=== PATIENT | female | born 1990 | race African-American/Black ===

== ENCOUNTER 2019-12-20 10:39 | Emergency (ER) | payer SELFPAY ==
[2019-12-20 10:45] VITALS: BP 118/66; PULSE 75; RESP 16; TEMP 37; O2SAT 100
--- NOTE | 2019-12-20 11:04 | ED.URI ---
HPI - URI/Sore Throat General Chief Complaint: Upper Respiratory Infection Stated Complaint: ST/HEADACHE Time Seen by Provider: 12/20/19 10:49 Source: patient and RN notes reviewed Mode of arrival: ambulatory Limitations: no limitations History of Present Illness HPI Narrative: Pt is a 29 y/o female who presents to the ED with c/o cold symptoms starting 2 days ago. She notes that she has had rhinorrhea, cough, headache, sneezing, and chills. Pt states that she also had body aches in her lower extremities 2 days ago, but notes that her pain is currently resolved. She denies any fever, nausea, or vomiting. Pt states that she took Nyquil last night for her symptoms, and notes that the medication provided her mild relief. She states that she hasn't been around any sick contacts or travelled recently. MD elicited complaint: other (Cold Symptoms) Onset (ago): day(s) (2) Relieving factors: OTC cold medicine Associated symptoms: chills, myalgias (lower extremity pain (resolved)), headache, rhinorrhea, cough and other (sneezing) Treatments prior to arrival: cold medicine Related Data Allergies Allergy/AdvReac Type Severity Reaction Status Date / Time No Known Allergies Allergy Unverified 05/28/19 17:43 Review of Systems Review of Systems: All systems reviewed & are unremarkable except as noted in HPI and below Constitutional: Constitutional: Reports chills and Denies fever(s) ENT: Reports headache(s), Reports nasal discharge and Reports other (sneezing) Respiratory: Respiratory: Reports cough Gastrointestinal: Gastrointestinal: Denies nausea and Denies vomiting Musculoskeletal: Musculoskeletal: Reports myalgias (lower extremity pain (resolved)) PMFSH Past Medical History Medical History Pyelonephritis URI (upper respiratory infection) Surgical History Surgical History No significant past surgical history Social History Social History Smoking status: Never smoker Exam Const: General: healthy appearing and no acute distress Nutritional Appearance: well nourished HENMT: General nose exam: Other nasal findings present (nasal mucosa edema) Face and sinus: sinuses nontender Resp: Effort & Inspection: normal respiratory effort Auscultation: clear to auscultation bilaterally Cardio: Rate: regular rate Rhythm: regular rhythm Heart sounds: no murmurs GI: GI Palp: Yes Soft to palpation and No Tenderness to palpation present (GI) Auscultation: normal bowel sounds Back/Spine/Pelvis: Back: other (Full ROM) Skin: General skin exam: normal color, dry skin and other (warm) Neuro: General: patient oriented x3 (alert) Speech: normal speech Extrem: General: full ROM Psych: Mental Status: mental status grossly normal Affect: normal affect Course Vital Signs Vital signs: Vital Signs Temperature 37.0 C 12/20/19 10:45 Pulse Rate 75 12/20/19 10:45 Respiratory Rate 16 12/20/19 10:45 Blood Pressure 118/66 12/20/19 10:45 Pulse Oximetry 100 12/20/19 10:45 Temperature 37.0 C 12/20/19 10:45 Pulse Rate 92 12/20/19 11:26 Respiratory Rate 16 12/20/19 11:26 Blood Pressure 138/75 12/20/19 11:26 Pulse Oximetry 100 12/20/19 11:26 MDM - URI/Sore Throat Differential Diagnosis Differential diagnosis: Likely upper respiratory infection, sinusitis, viral infection and influenza Medical Records Attestation: I reviewed the patient's medical records. Lab Data Attestation: I reviewed the patient's lab results. Labs: Influenza A Screen Positive Reference Range: Negative Influenza B Screen Negative Reference Range: Negative Strep Screen Positive Group A Strep *(Reference Range: Negative)* Discharge Plan Discharge Clinical Impression: Influenza Patient Disposition: Home, Self-
[2019-12-20] MEDS: OSELTAMIVIR PHOSPHATE 75 MG CAPSULE PO (11:22)
[2019-12-20] MEDS: PSEUDOEPHEDRINE HCL 30 MG TABLET 60 MG PO (11:22)
[2019-12-20 11:26] VITALS: BP 138/75; PULSE 92; RESP 16; O2SAT 100
== END 2019-12-20 11:27 | disposition home or self-care (01) ==
PROVIDERS: Emergency Provider Emergency Medicine
DX: J10.1 Influenza due to other identified influenza virus with other respiratory manifestations (principal)
CPT/HCPCS: 87804; 87880; 99283; A9270

== ENCOUNTER 2023-01-30 08:37 | Outpatient (CLI) | payer OTHER, SELFPAY ==
--- NOTE | ~2023-01-30 | CT_ITS ---
CT scan of the Neck Technique: 2.5 mm axial scans were obtained through the neck after intravenous administration of 75 c c Omnipaque 350. Coronal and sagittal reconstructions of the neck were obtained. Dose reduction techn ique was used on this scan by utilizing automated exposure control and iterative reconstruction techn ique. The dose-length product (DLP) was 507.43 mGy-cm. Clinical History: Neck masses COMPARISON: 06/23/2022 Findings: There is no evidence of any significant cervical lymphadenopathy. Several small, nonenlarged jugulo- digastric and posterior cervical lymph nodes are noted bilaterally. Parapharyngeal spaces appear norm al bilaterally. The parotid and submandibular glands appear normal. The pharyngeal mucosal spaces appear normal. No soft tissue masses are seen in the neck. There is a 1.8 x 1.3 cm exophytic posterior left thyroid lobe nodule, hypodense, noncystic. Lung apic es are clear. There is a large peripherally calcified precarinal lymph node or mass measuring 3.1 x 2 .4 cm in size. Smaller calcified right hilar lymph nodes are present. Impression: 1.8 x 1.3 cm left thyroid lobe nodule, probably similar to prior exam. Large peripherally calcified precarinal lymph node, also essentially stable from prior exam. Reviewed, dictated and finalized at location . Impression: 1.8 x 1.3 cm left thyroid lobe nodule, probably similar to prior exam. Large peripherally calcified precarinal lymph node, also essentially stable fro prior exam.
== END 2023-01-30 08:38 | disposition home or self-care (01) ==
PROVIDERS: PCP Family Medicine; Visit Provider Otolaryngology
DX: R22.1 Localized swelling, mass and lump, neck (principal)
CPT/HCPCS: 70491; Q9967